=== PATIENT | male | born 1975 ===

== ENCOUNTER 2022-09-07 06:00 | Day surgery (SDC) | payer OTHER ==
[~2022-09-07] VITALS: Ht 172.7 cm; Wt 105.2 kg
[~2022-09-07 06:00] MED LIST: PERCOCET 5-3251 EACH PO
== END 2022-09-07 16:10 | disposition home or self-care (01) ==
LOC: CIR.AMB 06:00
PROVIDERS: ATTEND Urology
DX: N20.1 Calculus of ureter (principal); Z20.822 Contact with and (suspected) exposure to COVID-19

== ENCOUNTER 2022-09-14 11:03 | Outpatient (CLI) | payer OTHER | END 2022-09-14 11:08 | disposition home or self-care (01) | LOC: RAD 11:03 | PROVIDERS: ATTEND Urology | DX: N20.1 Calculus of ureter (principal) ==